=== PATIENT | female | born 1995 | race Hispanic/Latino ===

== ENCOUNTER 2022-08-10 10:12 | Outpatient (CLI) | payer OTHER ==
[2022-08-10 10:47] LABS: #Basophils 0.1 10x3/uL (0.0-0.2); #Eosinphils 0.2 10x3/uL (0.0-0.5); #Monocytes 0.4 10x3/uL (0.0-1.1); #Neutrophils 5.7 10x3/uL (1.5-8.4); %Basophils 0.7 % (0.0-2.0); %Eosinophils 2.7 % (0.0-6.0); %Lymphocytes 22.8 % (18.0-47.0); %Monocytes 4.7 % (0.0-10.0); %Neutrophils 68.5 % (40.0-75.0); Hemoglobin 11.4 g/dL (12.0-15.5); Mean Corpuscular HGB CONC 30.4 g/dL (32.0-36.0); Mean Corpuscular Hemoglobin 24.8 pg (27.0-33.0); Mean Corpuscular Volume 81.5 fl (81.6-98.3); Mean Platelet Volume 10.7 fl (7.4-10.4); Platelet Count 362 10x3/uL (150-450); RBC Distribution Width 17.3 % (11.5-14.5); White Blood Cell (WBC) Count 8.3 10x3/uL (3.5-10.5)
[2022-08-10 10:50] LABS: BHCG - Serum Negative (NEGATIVE); Pregs Control Bar Appear? YES (CONTROL BAR)
[2022-08-10 10:51] LABS: Pregs Control Background? CLEAR/WHITE (CLR/WHITE)
[2022-08-10 10:56] LABS: Anion Gap 14 mmol/L (10-20); BUN (Urea Nitrogen) 13 mg/dL (7.0-18.7); Calc. Creatinine Clearance 0 mL/min (70-130); Calcium 9.1 mg/dL (7.8-10.44); Carbon Dioxide 24 mmol/L (22-29); Chloride 107 mmol/L (98-107); Estimated GFR 111; Glucose 105 mg/dL (70-105); Sodium 141 mmol/L (136-145)
== END 2022-08-10 10:13 | disposition home or self-care (01) ==
LOC: LABBT 10:12
PROVIDERS: ATTEND Specialist
DX: Z01.812 Encounter for preprocedural laboratory examination (principal); K42.9 Umbilical hernia without obstruction or gangrene
CPT/HCPCS: 80048; 84703; 85025

== ENCOUNTER 2022-08-16 10:05 | Day surgery (SDC) | payer OTHER ==
[2022-08-15 14:53] VITALS: BMI 29.2
[2022-08-16] MEDS ORDERED: Ketorolac Tromethamine 30 MG/ML VIAL ONE (10:39)
[2022-08-16] MEDS ORDERED: Acetaminophen 500 MG TAB ONE (10:39)
[2022-08-16] MEDS ORDERED: Gabapentin 300 MG CAP ONE (10:39)
[2022-08-16] MEDS ORDERED: Midazolam HCl 2 mg/2 ml Vial ONE (12:36)
[2022-08-16] MEDS ORDERED: Bupivacaine/Epinephrine 0.25% 30 ML VIAL ONE (12:40)
[2022-08-16] MEDS ORDERED: Fentanyl 250 MCG/5 ML VIAL ONE (12:43)
[2022-08-16] MEDS ORDERED: CEFAZOLIN 2 GM VIAL ONE (12:52)
[2022-08-16] MEDS ORDERED: Sodium Chloride 0.9% 100 ML ONE (12:52)
[2022-08-16] MEDS ORDERED: PROPOFOL 200 MG/20 ML VIAL ONE (13:02)
[2022-08-16] MEDS ORDERED: Glycopyrrolate 0.2 MG/ML 5 ML SYRINGE ONE (13:02)
[2022-08-16] MEDS ORDERED: Lidocaine 1% PF 5 ML VIAL ONE (13:02)
[2022-08-16] MEDS ORDERED: Ondansetron PF 4 MG/2 ML Vial ONE (13:02)
[2022-08-16] MEDS ORDERED: Rocuronium Bromide 10 MG/ML (10ML VIAL) ONE (13:02)
[2022-08-16] MEDS ORDERED: NEOSTIGMINE 3 MG/3 ML SYR 3 MG/3 ML SYRINGE ONE (13:02)
[2022-08-16] MEDS ORDERED: Dexamethasone 20 MG/5 ML VIAL ONE (13:02)
[2022-08-16] MEDS ORDERED: Fentanyl 100 MCG/2 ML VIAL ONE (14:40)
[2022-08-16] MEDS ORDERED: HYDROcodone/Acetaminophen 5/325 mg Tablet ONE (15:52)
== END 2022-08-16 16:48 | disposition home or self-care (01) ==
LOC: SDC 10:05
PROVIDERS: ATTEND Specialist
PROC: 0WUF4JZ Supplement Abdominal Wall with Synthetic Substitute, Percutaneous Endoscopic Approach (ICD-10-PCS; principal; 2022-08-16)
PROC: 8E0W4CZ Robotic Assisted Procedure of Trunk Region, Percutaneous Endoscopic Approach (ICD-10-PCS; principal; 2022-08-16)
DX: K42.9 Umbilical hernia without obstruction or gangrene (principal); Z79.3 Long term (current) use of hormonal contraceptives
CPT/HCPCS: C1781; J1100; J1885; J2250; J2405; J2704; J3010; J3490